=== PATIENT | female | born 1990 | race Caucasian/White ===

== ENCOUNTER 2021-12-28 07:42 | Emergency (ER) | payer BC ==
[~2021-12-28] VITALS: Ht 170.2 cm; Wt 82.0 kg
[2021-12-28 08:58] LABS: BASOPHILS % 0.4 % (0.0-2.0); EOSINOPHILS % 1.6 % (0.0-5.0); HEMATOCRIT. 40.6 % (36.0-48.0); LYMPHOCYTES % 25.8 % (20.0-50.0); MEAN CORPUSCULAR VOLUME 93.2 fL (81.0-99.0); MEAN PLATELET VOLUME 8.8 fl (7.4-10.4); MONOCYTES % 5.6 % (2.0-8.0); NEUTROPHILS % 66.6 % (40.0-76.0); PLATELET 196 x1000/uL (130-400); RED BLOOD CELL COUNT 4.36 mill/uL (4.2-5.4); RED CELL DISTRIBUTION WIDTH 15.4 % (11.6-14.6)
[2021-12-28 09:06] LABS: CHLORIDE 108 mEq/L (98-107)
[2021-12-28 09:14] LABS: HCG SCREEN NEGATIVE
[2021-12-28 09:21] LABS: CLARITY URINE CLEAR (CLEAR); COLOR URINE YELLOW (YELLOW); KETONES URINE NEGATIVE (NEGATIVE); LEUKOCYTE ESTERASE URINE TRACE (NEGATIVE); NITRITE URINE NEGATIVE (NEGATIVE); OCCULT BLOOD URINE NEGATIVE (NEGATIVE); PH URINE 6.5 (4.5-8.0); PROTEIN URINE TRACE (NEGATIVE); SPECIFIC GRAVITY URINE 1.017 (1.005-1.030); UROBILINOGEN URINE 0.2 E.U./dL (0.2-1.0)
[2021-12-28 09:22] LABS: ETHANOL BLOOD 368 mg/dL
[2021-12-28 09:35] LABS: *AMPHETAMINES SCREEN URINE NEGATIVE (NEGATIVE); *BARBITURATES SCREEN URINE NEGATIVE (NEGATIVE); *BENZODIAZEPINES SCREEN URINE NEGATIVE (NEGATIVE); *COCAINE SCREEN URINE NEGATIVE (NEGATIVE); CANNABINOID URINE SCREEN NEGATIVE (NEGATIVE); METHADONE URINE SCREEN NEGATIVE (NEGATIVE); OPIATES URINE SCREEN NEGATIVE (NEGATIVE); PHENCYCLIDINE URINE SCREEN NEGATIVE (NEGATIVE)
[2021-12-28] MEDS ORDERED: POTASSIUM CHLORIDE 20MEQ TABLET SR PO ONE (10:00)
[2021-12-28] MEDS: PAROXETINE HCL 10MG TABLET PO SCH (10:09)
[2021-12-28] MEDS ORDERED: CHLORDIAZEPOXIDE 25MG CAPSULE PO ONE (19:15)
[2021-12-29] MEDS ORDERED: DIPHENHYDRAMINE 50MG CAPSULE PO ONE (02:45)
[2021-12-29] MEDS: PAROXETINE HCL 10MG TABLET PO SCH (09:03)
[2021-12-29 12:49] VITALS: BP 137/93
== END 2021-12-29 13:48 | disposition home or self-care (01) ==
LOC: ER 07:42
DX: F10.129 Alcohol abuse with intoxication, unspecified (principal); F91.8 Other conduct disorders; Y90.8 Blood alcohol level of 240 mg/100 ml or more; Z20.822 Contact with and (suspected) exposure to COVID-19
CPT/HCPCS: 36415; 80053; 80305; 80307; 80320; 80329; 81003; 81025; 84703; 85025; 99285; C9803; U0003; U0005; G0480